=== PATIENT | male | born 1995 | race Two or more races ===

== ENCOUNTER 2018-05-02 09:47 | Emergency (ER) | payer SELFPAY ==
[~2018-05-02] VITALS: Ht 175.3 cm; Wt 90.0 kg
[2018-05-02 10:00] VITALS: BP 129/86
== END 2018-05-02 11:12 | disposition home or self-care (01) ==
LOC: ED 10:45
DX: H10.211 Acute toxic conjunctivitis, right eye (principal)
CPT/HCPCS: 99283